=== PATIENT | female | born 1940 | race Caucasian/White ===

== ENCOUNTER → 2022-08-01 | Outpatient (CLI) ==
[2022-08-01 12:47] LABS: BILIRUBIN,URINE NEGATIVE (NEGATIVE); CLARITY,URINE CLOUDY; COLOR,URINE YELLOW; GLUCOSE, URINE (UA) NEGATIVE (NEGATIVE); KETONES,URINE NEGATIVE (NEGATIVE); LEUKOCYTE ESTERASE ,URINE 1+ (NEGATIVE); NITRITE,URINE NEGATIVE (NEGATIVE); PH,URINE 5.5 (5-9); PROTEIN,URINE 1+ (NEGATIVE)
[2022-08-01 12:55] LABS: BACTERIA,URINE LARGE /HPF; SQUAMOUS EPITHELIAL CELL,UR 0-2 /HPF; WBC,URINE >100 /HPF
== END ==
LOC: LABNPT 12:42
PROVIDERS: ATTEND Internal Medicine
DX: R41.82 Altered mental status, unspecified (principal)
CPT/HCPCS: 81000; 87077; 87088

== ENCOUNTER → 2023-01-03 | Outpatient (CLI) | payer MEDICARE, MEDICAID ==
[~2023-01-03] MED LIST: ACET325T38 PO; ACHD5005 PO; ALPR.25T PO; ALPR0.5T7 PO; CARB1TAB30 PO; CEFD300C3 PO; CEPH-507 PO; DOCU-26 PO; DOCU100C37 PO; DULO30CA3 PO; DULO60CA59 PO; HYDR-34 PO; HYDR-3817 PO; NICO1PAT34 TD; NITR-65 PO; POLY17PO6 PO; SULF1TAB34 PO; SULF1TAB38 PO; TRM50T PO
[2023-01-03 11:23] LABS: BILIRUBIN,URINE NEGATIVE (NEGATIVE); CLARITY,URINE SL CLOUDY; COLOR,URINE YELLOW; GLUCOSE, URINE (UA) NEGATIVE (NEGATIVE); KETONES,URINE NEGATIVE (NEGATIVE); LEUKOCYTE ESTERASE ,URINE 3+ (NEGATIVE); NITRITE,URINE NEGATIVE (NEGATIVE); PH,URINE 6.5 (5-9); PROTEIN,URINE NEGATIVE (NEGATIVE)
[2023-01-03 11:31] LABS: BACTERIA,URINE FEW /HPF
== END ==
LOC: LABNPT 11:00
PROVIDERS: ATTEND Internal Medicine
DX: R41.82 Altered mental status, unspecified (principal)
CPT/HCPCS: 81000; 87088